=== PATIENT | female | born 1970 | race African-American/Black ===

== ENCOUNTER 2020-08-07 10:12 | Outpatient (CLI) | payer OTHER ==
--- NOTE | 2020-08-07 11:27 | RAD ---
EXAM: Chest 2 views: HISTORY: Cough for one week COMPARISON: None. FINDINGS: There is a normal-sized cardiomediastinal silhouette. There is no evidence of consolidation, mass, or pleural effusion. No acute osseous abnormality. IMPRESSION: No evidence of acute cardiopulmonary disease
== END 2020-08-07 10:13 | disposition home or self-care (01) ==
LOC: BICRAD 10:12
PROVIDERS: ATTEND Nurse Practitioner Family
DX: J06.9 Acute upper respiratory infection, unspecified (principal)
CPT/HCPCS: 71046